=== PATIENT | female | born 1965 | race Caucasian/White ===

== ENCOUNTER 2016-11-15 08:24 | Day surgery (SDC) | payer OTHER ==
[~2016-11-15] VITALS: Ht 167.6 cm; Wt 89.0 kg
[~2016-11-15 08:24] MED LIST: DIPH25CA6 PO; MELA1TAB11 PO; RIZA10TA26 PO; Sodium Chloride LOK Flush 10 mL Syringe IV PRN; fentaNYL-PF 50 mCg/mL 2 mL Inj IVPUSH PRN
[2016-11-15 09:04] VITALS: BP 130/90; PULSE 70; RESP 18; O2SAT 97
[2016-11-15] MEDS ORDERED: OMEP20TA24 PO (09:23)
[2016-11-15] MEDS: 0.9% Sodium Chloride 1,000 ML IV SCH ×2 (10:55→11:10)
[2016-11-15 11:22] VITALS: BP 111/82; PULSE 76; RESP 14; O2SAT 93
[2016-11-15 11:32] VITALS: BP 114/91; PULSE 86; RESP 16; O2SAT 97
[2016-11-15 11:41] VITALS: BP 122/90; PULSE 74; RESP 14; O2SAT 97
--- NOTE | 2016-11-15 12:11 | ENDO ---
[address] [address] ENDOSCOPY PROCEDURE PATIENT: NEREYDA GALINDO : 1965 MR#: [id number] ADMIT: 11/15/2016 JOB ID: [id number] DATE OF SERVICE: 11/15/2016 PROCEDURE PERFORMED: Colonoscopy. INDICATIONS: Screening. ASA CLASSIFICATION: The patient's ASA classification is II. MALLAMPATI SCORE: Mallampati score was 2. MEDICATIONS: 1. Versed 6 mg. 2. Fentanyl 125 mcg. INSTRUMENT USED: PCF-H180AL. PREPARATION QUALITY: Fair. PROCEDURE DETAILS: After informed consent was obtained, the patient was brought into the GI suite, where she was placed on oxygen via nasal cannula and monitored with continuous pulse oximeter, telemetry, and blood pressure monitoring. A time-out was performed. Then, she was placed in the left lateral decubitus position and medications were administered for sedation. Digital rectal exam was performed which was unremarkable. The colonoscope was then inserted into the rectum and advanced under direct visualization to the cecum, which was identified by the presence of the ileocecal valve and appendiceal orifice. Once the cecum was reached, the colonoscope was withdrawn back into the rectum, as the mucosa and lumen were examined. In the rectum, retroflexion was performed. Following retroflexion, remaining air in the rectum was suctioned, and procedure was completed. FINDINGS: 1. In the descending colon, there was an approximately 6-7 mm, flat polyp that was lifted using normal saline and then removed with a hot snare. The resulting mucosal defect was approximated with placement of three hemoclips. 2. Just distal to this, there was a diminutive polyp that was removed with cold biopsy forceps. 3. Internal hemorrhoids were noted on inspection as the colonoscope was withdrawn into the anal canal. IMPRESSION: 1. Two descending colon polyps. 2. Internal hemorrhoids. RECOMMENDATIONS: 1. Avoid NSAIDs and anticoagulants for 72 hours. 2. Repeat colonoscopy pending polyp pathology results. COMPLICATIONS: None. ESTIMATED BLOOD LOSS: Less than 5 mL.
--- NOTE | 2016-11-18 16:32 | PATH ---
SURGICAL PATHOLOGY Attending Physician:Issac Mercado CASE STATUS: Signed Out PATIENT NAME: NEREYDA GALINDO PID: [id number] : 1965 DATE COLLECTED:11/15/2016 17:07 SPECIMEN: 1: Colon, Biopsy 2: Colon, Biopsy CLINICAL HISTORY: 1). DESCENDING COLON POLYP 2). DISTAL DESCENDING COLON POLYP FINAL DIAGNOSIS: 1.DESCENDING COLON POLYP: SESSILE SERRATED ADENOMA. 2.DISTAL DESCENDING COLON POLYP: TUBULAR ADENOMA. ICD10 CODE D12.4 GROSS DESCRIPTION: The specimen is received in two formalin filled containers labeled with the patient's name. 1). The specimen is sublabeled "descending colon polyp" and consists of a 0.6 x 0.5 x 0.4 CM portion of tissue which is entirely submitted in cassette 1A. 2). The specimen is sublabeled "distal descending colon polyp" and consists of 2 portions of tissue which aggregate to 0.3 x 0.3 x 0.2 CM. The specimen is entirely submitted in cassette 2A. 11/15/2016 [facility] MICRO DESCRIPTION: See diagnosis. ICD-9 CODES: CPT CODES: 1: 41064 2: 97019 Electronically Signed Out Cristine Amaral MD [facility] Pathology [facility] [address], [place] [address] Technical component performed at [facility], [address] [place] [address] [address], [place], [address]
== END 2016-11-15 23:59 | disposition home or self-care (01) ==
LOC: END 08:24
PROVIDERS: ATTEND Internal Medicine Gastroenterology
DX: Z12.11 Encounter for screening for malignant neoplasm of colon (principal); Z83.71 Family history of colonic polyps; D12.4 Benign neoplasm of descending colon; K64.8 Other hemorrhoids; E78.5 Hyperlipidemia, unspecified; E66.9 Obesity, unspecified; Z68.31 Body mass index [BMI] 31.0-31.9, adult
CPT/HCPCS: 45380; 45381; 45385; 99153; G0500; J2250; J3010; J7030